=== PATIENT | male | born 1965 | race Caucasian/White ===

== ENCOUNTER 2019-12-31 18:59 | Emergency (ER) | payer BC ==
[~2019-12-31] VITALS: Ht 172.7 cm; Wt 112.4 kg
[2019-12-31] MEDS ORDERED: OZEM2INJ SC (19:14)
[2019-12-31] MEDS ORDERED: WARF-21 PO (19:14)
[2019-12-31] MEDS ORDERED: METF-877 PO (19:14)
[2019-12-31] MEDS ORDERED: JARD1TAB PO (19:14)
[2019-12-31] MEDS ORDERED: ATOR80TA59 PO (19:14)
[2019-12-31] MEDS ORDERED: INSULANT SC (19:14)
[2019-12-31] MEDS ORDERED: WARF-23 PO (19:14)
[2019-12-31] MEDS ORDERED: vitamin d PO (19:14)
[2019-12-31] MEDS ORDERED: LISI10TA4 PO (19:15)
[2019-12-31] MEDS ORDERED: PIPERACILLIN/TAZOBACTAM SOD 3.375 GM in D5W MINI-BAG PLUS 50 ML IV ONE (20:15)
[2019-12-31 20:18] LABS: BASO % 0.3 % (0.0-1.0); EOS # 0.1 10^3/uL (0.0-0.5); EOS % 1.3 % (0.0-3.0); HEMATOCRIT 43.5 % (42.0-52.0); HEMOGLOBIN 14.4 g/dl (13.5-17.5); LYMPH # 2.1 10^3/uL (1.5-5.0); LYMPH % 19.7 % (24.0-44.0); MEAN CORPUSCULAR HEMOGLOBIN 27.6 pg (27.0-33.0); MEAN CORPUSCULAR HGB CONC 33.1 g/dl (32.0-36.5); MEAN CORPUSCULAR VOLUME 83.5 fl (80.0-96.0); MONO # 0.8 10^3/uL (0.0-0.8); MONO % 7.8 % (0.0-5.0); NEUTROPHILS # 7.5 10^3/uL (1.5-8.5); NEUTROPHILS % 70.5 % (36.0-66.0); PLATELET COUNT, AUTOMATED 275 10^3/uL (150-450); RED BLOOD COUNT 5.21 10^6/uL (4.30-6.10); WHITE BLOOD COUNT 10.6 10^3/uL (4.0-10.0)
[2019-12-31 20:41] LABS: BILIRUBIN,DIRECT 0.2 MG/DL (0.0-0.2); BILIRUBIN,TOTAL 0.8 MG/DL (0.2-1.0); CREATININE FOR GFR 1.48 MG/DL (0.70-1.30); GLOMERULAR FILTRATION RATE 52.3 (>56); POTASSIUM SERUM 4.1 MEQ/L (3.5-5.1); TOTAL PROTEIN 8.3 GM/DL (6.4-8.2)
--- NOTE | 2019-12-31 20:59 | REPVR ---
PROCEDURE INFORMATION: Exam: XR Left Foot Complete Exam date and time: 12/31/2019 8:51 PM Age: 54 years old Clinical indication: Other: Asbcess; Additional info: Abscess base of fifth digit, diabetes TECHNIQUE: Imaging protocol: XR Left foot. Views: 3 or more views. COMPARISON: No relevant prior studies available. FINDINGS: Bones/joints: Erosive changes on the lateral aspect of the 5th metatarsal head concerning for possible osteomyelitis. Soft tissues: Soft tissue swelling and small locules of air lateral to the 5th metatarsal head consistent with an abscess. IMPRESSION: 1. Soft tissue swelling and small locules of air lateral to the 5th metatarsal head consistent with an abscess. 2. Erosive changes on the lateral aspect of the 5th metatarsal head concerning for possible osteomyelitis. Electronically signed by: Philip Boyce On 12/31/2019 20:59:11 PM
[2019-12-31 22:11] VITALS: BP 123/61
== END 2020-01-01 00:57 | disposition short-term general hospital (02) ==
LOC: M ED 18:59
DX: M86.172 Other acute osteomyelitis, left ankle and foot (principal); E11.621 Type 2 diabetes mellitus with foot ulcer; Z20.828 Contact with and (suspected) exposure to other viral communicable diseases; Z86.718 Personal history of other venous thrombosis and embolism; Z88.8 Allergy status to other drugs, medicaments and biological substances; Z79.01 Long term (current) use of anticoagulants; Z79.899 Other long term (current) drug therapy
CPT/HCPCS: 73630; 80048; 80076; 83690; 85025; 87040; 87070; 87077; 87186; 93041; 96365; 99285; J2543; U0002

== ENCOUNTER 2021-05-19 20:23 | Emergency (ER) | payer OTHER, BC ==
[~2021-05-19] VITALS: Ht 174 cm; Wt 117.2 kg
[~2021-05-19 20:23] MED LIST: ATOR80TA59 PO; INSULANT SC; JARD1TAB PO; LISI10TA22 PO; METF-877 PO; OZEM2INJ SC; WARF-21 PO; WARF-23 PO; vitamin d PO
[2021-05-19] MEDS ORDERED: ELIQ5TAB PO (20:36)
[2021-05-19 23:50] VITALS: BP 115/68
== END 2021-05-20 00:35 | disposition home or self-care (01) ==
LOC: M ED 20:23
DX: E11.9 Type 2 diabetes mellitus without complications (principal); I10 Essential (primary) hypertension; S22.39XA Fracture of one rib, unspecified side, initial encounter for closed fracture; X58.XXXA Exposure to other specified factors, initial encounter; Y92.89 Other specified places as the place of occurrence of the external cause; E78.5 Hyperlipidemia, unspecified; Z79.899 Other long term (current) drug therapy; Z79.84 Long term (current) use of oral hypoglycemic drugs; Z79.4 Long term (current) use of insulin; Z79.01 Long term (current) use of anticoagulants; Z88.5 Allergy status to narcotic agent; Z88.8 Allergy status to other drugs, medicaments and biological substances

== ENCOUNTER 2023-02-02 08:57 | Inpatient (IN) | payer OTHER, BC ==
[~2023-02-02] VITALS: Ht 175.3 cm; Wt 115.2 kg
[~2023-02-02 08:57] MED LIST changes: +ELIQ5TAB PO
[2023-02-02] MEDS ORDERED: MORPHINE 4 MG/ML 1ML VIAL IV PRN (09:15)
[2023-02-02] MEDS ORDERED: ONDANSETRON 4MG 2ML VIAL IV ONE (09:15)
[2023-02-02 10:43] LABS: HEMATOCRIT 49.4 % (42.0-52.0); HEMOGLOBIN 16.5 g/dl (13.5-17.5); MEAN CORPUSCULAR HEMOGLOBIN 30.1 pg (27.0-33.0); MEAN CORPUSCULAR HGB CONC 33.4 g/dl (32.0-36.5); MEAN CORPUSCULAR VOLUME 90.1 fl (80.0-96.0); PLATELET COUNT, AUTOMATED 199 10^3/uL (150-450); RED BLOOD COUNT 5.48 10^6/uL (4.30-6.10); WHITE BLOOD COUNT 9.6 10^3/uL (4.0-10.0)
[2023-02-02 10:56] LABS: INR 1.13; PROTHROMBIN TIME 14.2 SECONDS (12.5-14.5)
[2023-02-02 10:57] LABS: PARTIAL THROMBOPLASTIN TIME 26.8 SECONDS (24.8-34.2)
[2023-02-02 12:15] LABS: BLOOD UREA NITROGEN 25 MG/DL (9-23); CALCIUM LEVEL 9.8 MG/DL (8.5-10.1); CARBON DIOXIDE LEVEL 30 MMOL/L (20-31); CHLORIDE LEVEL 104 MMOL/L (98-107); CREATININE FOR GFR 1.24 MG/DL (0.70-1.30); GLOMERULAR FILTRATION RATE > 60.0 (>56); GLUCOSE, FASTING 158 MG/DL (60-100); POTASSIUM SERUM 4.4 MMOL/L (3.5-5.1); SODIUM LEVEL 141 MMOL/L (136-145)
[2023-02-02] MEDS ORDERED: MED REC IN PROGRESS XX SCH (12:25)
[2023-02-02] MEDS ORDERED: DEXTROSE 50% 50ML SYRINGE IV PRN (12:30)
[2023-02-02] MEDS ORDERED: GLUCAGON INJ 1MG VIAL SC PRN (12:30)
[2023-02-02] MEDS ORDERED: GLUCOSE 4GM CHEW TABLET PO PRN (12:30)
[2023-02-02] MEDS ORDERED: MOM 30ML SUSPENSION UDC PO PRN (12:30)
[2023-02-02] MEDS ORDERED: MAALOX 30 ML SUSP *UDC PO PRN (12:30)
[2023-02-02] MEDS ORDERED: ACETAMINOPHEN TAB 650MG DOSE (2X325MG) PO PRN (12:30)
[2023-02-02] MEDS: INSULIN LISPRO (NovoLOG) PER UNIT SC SCH ×3 (13:18→21:00)
[2023-02-02] MEDS ORDERED: SEMA1PEN2 IM (13:52)
[2023-02-02] MEDS ORDERED: D 1010004 PO (13:52)
[2023-02-02] MEDS ORDERED: METF-838 SC (13:52)
[2023-02-02] MEDS ORDERED: HOME MED LIST COMPLETE! XX SCH (13:55)
[2023-02-02 14:00] VITALS: BP 113/63; TEMP 98.2; O2SAT 96
[2023-02-02 20:20] VITALS: BP 104/68; TEMP 99.1; O2SAT 93
[2023-02-02] MEDS ORDERED: ENOXAPARIN 120MG/0.8ML SYRINGE SC ONE (21:00)
[2023-02-02] MEDS: LEVEMIR (INSULIN DETEMIR) 1 UNITS/0.01ML SC SCH (22:28)
[2023-02-02] MEDS: MORPHINE 2 MG/ML 1ML VIAL IV PRN (22:30)
[2023-02-02] MEDS: DOCUSATE SODIUM 100MG CAPSULE PO SCH (22:30)
[2023-02-03] VITALS (9 sets, daily range): BP systolic 103–117; BP diastolic 51–74; TEMP 97.9–99; O2SAT 94–96
[2023-02-03 05:57] LABS: BASO % 0.5 % (0.0-1.0); EOS # 0.2 10^3/uL (0.0-0.5); EOS % 2.7 % (0.0-3.0); HEMATOCRIT 48.3 % (42.0-52.0); HEMOGLOBIN 16.1 g/dl (13.5-17.5); LYMPH # 1.9 10^3/uL (1.5-5.0); LYMPH % 23.7 % (24.0-44.0); MEAN CORPUSCULAR HEMOGLOBIN 29.8 pg (27.0-33.0); MEAN CORPUSCULAR HGB CONC 33.3 g/dl (32.0-36.5); MEAN CORPUSCULAR VOLUME 89.3 fl (80.0-96.0); MONO # 0.6 10^3/uL (0.0-0.8); NEUTROPHILS # 5.1 10^3/uL (1.5-8.5); NEUTROPHILS % 64.8 % (36.0-66.0); PLATELET COUNT, AUTOMATED 173 10^3/uL (150-450); RED BLOOD COUNT 5.41 10^6/uL (4.30-6.10); WHITE BLOOD COUNT 7.8 10^3/uL (4.0-10.0)
[2023-02-03 06:26] LABS: CALCIUM LEVEL 8.7 MG/DL (8.5-10.1); CREATININE FOR GFR 1.31 MG/DL (0.70-1.30); GLOMERULAR FILTRATION RATE 59.6 (>56); MAGNESIUM LEVEL 1.8 MG/DL (1.8-2.4); POTASSIUM SERUM 4.3 MMOL/L (3.5-5.1)
[2023-02-03] MEDS: INSULIN LISPRO (NovoLOG) PER UNIT SC SCH ×4 (07:30→21:00)
[2023-02-03] MEDS: ATORVASTATIN 20 MG TAB PO SCH (09:00)
[2023-02-03] MEDS ORDERED: INFLUENZA QUADRIVALENT PF VACCINE 0.5ML SYRINGE IM.IMMUN ONE (09:00)
[2023-02-03] MEDS: MORPHINE 2 MG/ML 1ML VIAL IV PRN ×3 (10:24→21:17)
[2023-02-03] MEDS: NS 1,000 ML IV SCH ×2 (11:15→21:18)
[2023-02-03] MEDS: DOCUSATE SODIUM 100MG CAPSULE PO SCH ×2 (13:21→21:17)
[2023-02-03] MEDS: VITAMIN D 1,000 INTERNATIONAL UNITS TABLET PO SCH (13:22)
[2023-02-03] MEDS ORDERED: ROCURONIUM BROMIDE 50MG/5ML VIAL As Ordered ONE (15:52)
[2023-02-03] MEDS ORDERED: LIDOCAINE 2% 100MG/5ML SDV (FOR ANES.) As Ordered ONE (15:52)
[2023-02-03] MEDS ORDERED: HYDROmorphone HCL 2MG/ML 1ML VIAL As Ordered ONE (16:21)
[2023-02-03] MEDS ORDERED: ONDANSETRON 4MG 2ML VIAL As Ordered ONE (16:26)
[2023-02-03] MEDS ORDERED: CLINDAMYCIN 600MG/50ML PREMIX BAG As Ordered ONE (16:43)
[2023-02-03] MEDS ORDERED: ceFAZolin 1GM VIAL As Ordered ONE (16:44)
[2023-02-03] MEDS ORDERED: MIDAZOLAM INJ 2MG/2ML VIAL As Ordered ONE (16:51)
[2023-02-03] MEDS ORDERED: ceFAZolin 2 GM/D5W 50 ML IV BAG As Ordered ONE (17:11)
[2023-02-03] MEDS ORDERED: METOPROLOL 5 MG/5 ML VIAL As Ordered ONE (17:31)
[2023-02-03] MEDS ORDERED: ACETAMINOPHEN 1000MG 100ML IV BAG As Ordered ONE (17:38)
[2023-02-03] MEDS ORDERED: LR 1,000 ML IV SCH (18:40)
[2023-02-03] MEDS ORDERED: ONDANSETRON 4MG 2ML VIAL IV PRN (18:40)
[2023-02-03] MEDS ORDERED: oxyCODONE 5MG TAB PO PRN (18:40)
[2023-02-03] MEDS ORDERED: MORPHINE 2 MG/ML 1ML VIAL IV PRN (18:40)
[2023-02-03] MEDS ORDERED: INSULIN LISPRO (NovoLOG) PER UNIT SC PRN (18:40)
[2023-02-03] MEDS ORDERED: METOCLOPRAMIDE INJ 10MG/2ML VIAL IV PRN (18:40)
[2023-02-03] MEDS: LEVEMIR (INSULIN DETEMIR) 1 UNITS/0.01ML SC SCH (21:18)
[2023-02-04 01:00] VITALS: BP 108/62; TEMP 98.1; O2SAT 93
[2023-02-04 02:00] VITALS: BP 114/65; TEMP 97.7; O2SAT 95
[2023-02-04] MEDS: ceFAZolin SOD 2 GM in IV 1 EA IV SCH ×2 (03:19→08:54)
[2023-02-04] MEDS: MORPHINE 2 MG/ML 1ML VIAL IV PRN (03:34)
[2023-02-04 06:10] VITALS: BP 109/67; TEMP 98.1; O2SAT 95
[2023-02-04 06:11] LABS: BASO % 0.1 % (0.0-1.0); HEMATOCRIT 46.3 % (42.0-52.0); HEMOGLOBIN 15.2 g/dl (13.5-17.5); LYMPH # 0.7 10^3/uL (1.5-5.0); LYMPH % 7.3 % (24.0-44.0); MEAN CORPUSCULAR HEMOGLOBIN 29.5 pg (27.0-33.0); MEAN CORPUSCULAR HGB CONC 32.8 g/dl (32.0-36.5); MEAN CORPUSCULAR VOLUME 89.9 fl (80.0-96.0); MONO # 0.4 10^3/uL (0.0-0.8); MONO % 4.7 % (2.0-8.0); NEUTROPHILS # 7.9 10^3/uL (1.5-8.5); NEUTROPHILS % 87.7 % (36.0-66.0); PLATELET COUNT, AUTOMATED 161 10^3/uL (150-450); RED BLOOD COUNT 5.15 10^6/uL (4.30-6.10)
[2023-02-04 06:34] LABS: BLOOD UREA NITROGEN 27 MG/DL (9-23); CALCIUM LEVEL 8.3 MG/DL (8.5-10.1); CARBON DIOXIDE LEVEL 26 MMOL/L (20-31); CHLORIDE LEVEL 104 MMOL/L (98-107); CREATININE FOR GFR 1.21 MG/DL (0.70-1.30); GLOMERULAR FILTRATION RATE > 60.0 (>56); GLUCOSE, FASTING 184 MG/DL (60-100); MAGNESIUM LEVEL 1.7 MG/DL (1.8-2.4); POTASSIUM SERUM 4.5 MMOL/L (3.5-5.1); SODIUM LEVEL 139 MMOL/L (136-145)
[2023-02-04] MEDS ORDERED: MAG SULF 1GM/100ML (MAG RUN) 1 GM in IV 1 EA IV ONE (07:00)
[2023-02-04] MEDS ORDERED: PERCOCET 5MG/325MG TAB PO PRN ×2 (08:00)
[2023-02-04] MEDS: VITAMIN D 1,000 INTERNATIONAL UNITS TABLET PO SCH (08:51)
[2023-02-04 08:52] VITALS: BP 109/67
[2023-02-04] MEDS: ATORVASTATIN 20 MG TAB PO SCH (08:54)
[2023-02-04] MEDS: DOCUSATE SODIUM 100MG CAPSULE PO SCH (08:57)
[2023-02-04] MEDS: INSULIN LISPRO (NovoLOG) PER UNIT SC SCH ×2 (08:57→12:00)
[2023-02-04] MEDS ORDERED: APIXABAN 5 MG TAB (ELIQUIS) PO SCH (09:00)
[2023-02-04 09:30] VITALS: O2SAT 94
[2023-02-04] MEDS ORDERED: PERCOCET PO ×3 (09:51→11:42)
== END 2023-02-04 12:40 | disposition home or self-care (01) | DRG 313 ==
LOC: M ED 08:57 → EDBD 08:57 → M ED INP 12:28 → M MS5PR 14:40
PROVIDERS: ADMIT Internal Medicine; ATTEND Internal Medicine
PROC: 0QSH06Z Reposition Left Tibia with Intramedullary Internal Fixation Device, Open Approach (ICD-10-PCS; principal; 2023-02-03 16:00)
DX: S82.202A Unspecified fracture of shaft of left tibia, initial encounter for closed fracture (principal); E11.42 Type 2 diabetes mellitus with diabetic polyneuropathy; I10 Essential (primary) hypertension; Z86.718 Personal history of other venous thrombosis and embolism; E78.5 Hyperlipidemia, unspecified; Z90.49 Acquired absence of other specified parts of digestive tract; Z89.422 Acquired absence of other left toe(s); Z79.01 Long term (current) use of anticoagulants; Z79.4 Long term (current) use of insulin; Z79.84 Long term (current) use of oral hypoglycemic drugs; Z79.899 Other long term (current) drug therapy; Z88.6 Allergy status to analgesic agent; Z88.8 Allergy status to other drugs, medicaments and biological substances; Z20.822 Contact with and (suspected) exposure to COVID-19; W10.8XXA Fall (on) (from) other stairs and steps, initial encounter; Y92.59 Other trade areas as the place of occurrence of the external cause; S82.402A Unspecified fracture of shaft of left fibula, initial encounter for closed fracture

== ENCOUNTER → 2023-03-16 | Outpatient (CLI) | payer OTHER, BC ==
[~2023-03-16] MED LIST changes: +D 1010004 PO; +METF-838 SC; +PERCOCET PO; +SEMA1PEN2 IM
== END ==
LOC: M SOG 07:54
PROVIDERS: ATTEND Physician Assistant
DX: S82.202D Unspecified fracture of shaft of left tibia, subsequent encounter for closed fracture with routine healing (principal)

== ENCOUNTER → 2023-05-18 | Outpatient (CLI) | payer OTHER, BC | LOC: M SOG 07:51 | PROVIDERS: ATTEND Physician Assistant | DX: S82.202D Unspecified fracture of shaft of left tibia, subsequent encounter for closed fracture with routine healing (principal); Y93.9 Activity, unspecified; Y92.9 Unspecified place or not applicable ==

== ENCOUNTER → 2024-01-06 | Outpatient (CLI) | payer OTHER, BC | LOC: M SOG 07:23 | PROVIDERS: ATTEND Physician Assistant | DX: S82.202D Unspecified fracture of shaft of left tibia, subsequent encounter for closed fracture with routine healing (principal) ==

== ENCOUNTER 2024-04-02 06:47 | Day surgery (SDC) | payer BC, OTHER ==
[~2024-04-02] VITALS: Ht 175.3 cm; Wt 115.6 kg
[~2024-04-02 06:47] MED LIST changes: +PANT20TA6 PO
[2024-04-02] MEDS ORDERED: dexmedeTOMIDine (4MCG/ML)200MCG/50ML BTL (PRECEDEX) As Ordered ONE (07:14)
[2024-04-02] MEDS ORDERED: propofoL 500 MG/50 ML VIAL As Ordered ONE (07:14)
[2024-04-02] MEDS ORDERED: LIDOCAINE 2% 100MG/5ML SDV (FOR ANES.) As Ordered ONE (07:14)
[2024-04-02] MEDS ORDERED: SIMETHICONE 40MG/0.6ML DROPS 30ML As Ordered ONE (08:57)
[2024-04-02] MEDS ORDERED: propofoL 200 MG/20 ML VIAL As Ordered ONE (09:08)
[2024-04-02 09:20] VITALS: TEMP 98
[2024-04-02 09:50] VITALS: BP 100/63; O2SAT 94
== END 2024-04-02 10:01 | disposition home or self-care (01) ==
LOC: M OPP 06:47
PROVIDERS: ATTEND Surgery
DX: Z12.11 Encounter for screening for malignant neoplasm of colon (principal); D12.0 Benign neoplasm of cecum; K31.84 Gastroparesis; K57.30 Diverticulosis of large intestine without perforation or abscess without bleeding; K31.A19 Gastric intestinal metaplasia without dysplasia, unspecified site; K20.90 Esophagitis, unspecified without bleeding; K22.89 Other specified disease of esophagus; K29.70 Gastritis, unspecified, without bleeding; K31.89 Other diseases of stomach and duodenum; K29.80 Duodenitis without bleeding; I10 Essential (primary) hypertension; E78.00 Pure hypercholesterolemia, unspecified; E11.40 Type 2 diabetes mellitus with diabetic neuropathy, unspecified; K21.9 Gastro-esophageal reflux disease without esophagitis; G47.33 Obstructive sleep apnea (adult) (pediatric); Z99.89 Dependence on other enabling machines and devices; Z86.718 Personal history of other venous thrombosis and embolism; Z88.5 Allergy status to narcotic agent; Z88.6 Allergy status to analgesic agent; Z79.01 Long term (current) use of anticoagulants; Z79.4 Long term (current) use of insulin; Z79.84 Long term (current) use of oral hypoglycemic drugs; Z79.85 Long-term (current) use of injectable non-insulin antidiabetic drugs; Z79.899 Other long term (current) drug therapy

== ENCOUNTER → 2024-04-12 | Outpatient (CLI) | payer OTHER, BC | LOC: M RAD 11:34 | PROVIDERS: ATTEND Surgery | DX: K31.84 Gastroparesis (principal) | CPT/HCPCS: 78264; A9541 ==